=== PATIENT | female | born 1945 | race Two or more races ===

== ENCOUNTER 2021-07-07 09:30 | Inpatient (IN) | payer OTHER ==
[2021-07-07] MEDS ORDERED: OMEPRAZOLE MAGN20 MG (10:17)
[2021-07-07] MEDS ORDERED: MONTELUKAST SODI4 M1 (10:17)
[2021-07-07] MEDS ORDERED: SYNTHROID75 MCG (10:18)
[2021-07-07] MEDS ORDERED: TENORMIN25 MG (10:18)
[2021-07-07] MEDS ORDERED: TRUSOPT10 ML (10:19)
[2021-07-07] MEDS ORDERED: XELPROS2.5 ML (10:19)
[2021-07-07] MEDS ORDERED: LUMIFY2.5 ML (10:19)
== END 2021-07-19 20:34 | disposition home or self-care (01) | DRG 330 ==
LOC: SURH 07-13 07:29 → O/R 07-13 07:29 → SURH 07-13 09:30
PROVIDERS: ADMIT Colon & Rectal Surgery; ATTEND Colon & Rectal Surgery
PROC: 0DTN0ZZ Resection of Sigmoid Colon, Open Approach (ICD-10-PCS; 2021-07-13)
PROC: 0WUF07Z Supplement Abdominal Wall with Autologous Tissue Substitute, Open Approach (ICD-10-PCS; 2021-07-13)
PROC: 3E0F7SF Introduction of Other Gas into Respiratory Tract, Via Natural or Artificial Opening (ICD-10-PCS; 2021-07-13)
PROC: 3E0F7GC Introduction of Other Therapeutic Substance into Respiratory Tract, Via Natural or Artificial Opening (ICD-10-PCS; 2021-07-13)
PROC: B54DZZZ Ultrasonography of Bilateral Lower Extremity Veins (ICD-10-PCS; 2021-07-13)
PROC: 0DTP0ZZ Resection of Rectum, Open Approach (ICD-10-PCS; principal; 2021-07-13 11:15)
DX: K57.20 Diverticulitis of large intestine with perforation and abscess without bleeding (principal); N32.1 Vesicointestinal fistula; K82.3 Fistula of gallbladder; K92.1 Melena; J44.9 Chronic obstructive pulmonary disease, unspecified

== ENCOUNTER 2021-10-12 18:03 | Inpatient (IN) | payer OTHER ==
[~2021-10-12] VITALS: Ht 154.9 cm; Wt 59.4 kg
[~2021-10-12 18:03] MED LIST: LUMIFY2.5 ML; MONTELUKAST SODI4 M1; OMEPRAZOLE MAGN20 MG; SYNTHROID75 MCG; TENORMIN25 MG; TRUSOPT10 ML; XELPROS2.5 ML
[2021-10-20] MEDS ORDERED: DORZOLAMIDE-TIM10 ML (14:30)
[2021-10-20] MEDS ORDERED: LATANOPROST2.5 ML (14:30)
[2021-10-20] MEDS ORDERED: OMEPRAZOLE20 MG (14:30)
[2021-10-20] MEDS ORDERED: ARNUITY ELLIP100 MCG (14:31)
[2021-10-20] MEDS ORDERED: PENTOXIFYLLINE400 MG (14:31)
[2021-10-20] MEDS ORDERED: LAXATIVE5 MG (14:31)
[2021-10-20] MEDS ORDERED: MAXIMUM D3325 MCG (14:31)
[2021-10-20] MEDS ORDERED: BRIMONIDINE TART5 ML OPHT (14:31)
[2021-10-20] MEDS ORDERED: PRAVASTATIN SOD20 MG (14:31)
[2021-10-20] MEDS ORDERED: NAPROXEN500 MG (14:32)
[2021-10-20] MEDS ORDERED: FLONASE16 GM (14:33)
[2021-10-20] MEDS ORDERED: ACIDOPHILUS1 EAC1 PO (15:19)
== END 2021-10-20 20:09 | disposition home or self-care (01) | DRG 373 ==
LOC: ER 18:03 → SURH 10-13 12:16
PROVIDERS: ADMIT Surgery; ATTEND Surgery
PROC: 0W9J30Z Drainage of Pelvic Cavity with Drainage Device, Percutaneous Approach (ICD-10-PCS; principal; 2021-10-14)
PROC: BW21YZZ Computerized Tomography (CT Scan) of Abdomen and Pelvis using Other Contrast (ICD-10-PCS; 2021-10-20)
DX: K65.1 Peritoneal abscess (principal); B96.29 Other Escherichia coli [E. coli] as the cause of diseases classified elsewhere